=== PATIENT | female | born 1975 | race Caucasian/White ===

== ENCOUNTER 2023-11-27 10:42 | Outpatient (CLI) | payer BC, SELFPAY ==
[2023-11-27 07:46] LABS: Abs Immature Grans 0.02 10^3/uL (0.0-0.06); Absolute Basophil Count 0.03 10^3/uL (0.0-0.2); Absolute Eosinophil Count 0.05 10^3/uL (0.0-0.7); Absolute Lymphocyte Count 1.68 10^3/uL (1.2-3.4); Absolute Monocyte Count 0.65 10^3/uL (0.1-0.8); Basophils % 0.4; Eosinophils % 0.6; HCT 42.3 % (36.0-46.0); HGB 14.7 g/dL (11.2-15.7); Immature Grans % 0.2; Lymphocytes % 20.2; MCH 30.4 pg (27.0-33.0); MCHC 34.8 % (32.0-36.0); MCV 88 fL (80-95); MPV 10.9 fL (8.0-11.0); Monocytes % 7.8; Neutrophils % 70.8; Platelet Count 252 10^3/uL (130-400); RBC 4.83 10^6/uL (3.93-5.22); RDW 11.4 % (11.7-14.6); RDW-SD 36.4 fL; WBC 8.33 10^3/uL (4.4-10.8)
[2023-11-27 08:08] LABS: ALT 18 U/L (14-59); AST 11 U/L (15-37); Albumin 3.9 g/dL (3.4-5.0); Alkaline Phosphatase 40 U/L (46-116); Anion Gap 6.6 mmol/L (3-11); BUN 9 mg/dL (7-18); Bilirubin, Total 0.6 mg/dL (0.2-1.0); CO2 28.4 mmol/L (21.0-32.0); CREATININE 0.9 mg/dL (0.55-1.02); Calcium 8.9 mg/dL (8.5-10.1); Calculated LDL 100 mg/dL (<100); Chloride 104 mmol/L (98-107); Cholesterol 170 mg/dL (<200); Estimated GFR 79.85 (mL/min/1.73m2); Glucose 89 mg/dL (74-106); HDL Cholesterol 63 mg/dL (40-60); Potassium 3.9 mmol/L (3.5-5.1); Sodium 139 mmol/L (136-145); Triglyceride 38 mg/dL (<150)
== END 2023-11-27 10:43 | disposition home or self-care (01) ==
LOC: LBO 10:43
PROVIDERS: PCP Family Medicine; Visit Provider Family Medicine
DX: Z00.00 Encounter for general adult medical examination without abnormal findings (principal)
CPT/HCPCS: 36415; 80053; 80061; 85025

== ENCOUNTER → 2024-01-21 04:02 | Outpatient (CLI) | payer BC, SELFPAY ==
--- NOTE | 2024-01-21 | DI.MAMMO_ITS ---
Exam(s) MAMMO SCREENING EXAM: MAMMO SCREENING CLINICAL HISTORY: Z00.00 Annual physical exam TECHNIQUE: Mammograms were interpreted according to the usual protocol including computer analysis w [employer] CAD system, tomosynthesis and C-view imaging. COMPARISON: None. FINDINGS: The breasts are composed of heterogeneously dense fibroglandular densities, Breast Density category C . No suspicious masses or suspicious microcalcifications are seen. No skin thickening or abnormal axillary lymph nodes are seen. IMPRESSION: BI-RADS Category 1, Negative mammogram. Yearly screening mammography is recommended. Breast Density Category C, heterogeneously Dense. The mammogram demonstrates the patient's breast tissue is dense. Dense breast tissue is very common a nd is not abnormal but dense breast tissue can make it harder to find cancer on a mammogram. Also, de nse breast tissue may increase breast cancer risk. This information about the result of the mammogram report was provided to the patient to raise their awareness. Use this report when you speak with the patient about their risks for breast cancer, which includes their family history. At that time, you may recommend additional screening tests (Ultrasound or MRI) as they might be useful based on their r isk. A negative radiographic report should not delay biopsy if a dominant or clinically suspicious mass is present. Up to ten percent of cancers are not identified on mammography. A negative report may reinforce clinical impression. Adenosis and dense breasts may obscure an underlying neoplasm. False positive reports average 6 to 10%.
== END ==
PROVIDERS: PCP Family Medicine; Visit Provider Family Medicine
DX: Z00.00 Encounter for general adult medical examination without abnormal findings (principal); Z12.31 Encounter for screening mammogram for malignant neoplasm of breast; R92.323 Mammographic fibroglandular density, bilateral breasts
CPT/HCPCS: 77063; 77067

== ENCOUNTER 2024-09-20 15:42 | Outpatient (CLI) | payer BC, SELFPAY ==
[2024-09-20 15:11] LABS: Abs Immature Grans 0.03 10^3/uL (0.0-0.06); Absolute Basophil Count 0.03 10^3/uL (0.0-0.2); Absolute Eosinophil Count 0.04 10^3/uL (0.0-0.7); Absolute Lymphocyte Count 2.56 10^3/uL (1.2-3.4); Absolute Monocyte Count 0.58 10^3/uL (0.1-0.8); Absolute Neutrophil Count 5.74 10^3/uL (1.2-6.7); Basophils % 0.3 %; Eosinophils % 0.4 %; HCT 44.4 % (36.0-46.0); HGB 15.1 g/dL (11.2-15.7); Immature Grans % 0.3 %; Lymphocytes % 28.5 %; MCH 30.9 pg (27.0-33.0); MCV 91 fL (80-95); MPV 11.3 fL (8.0-11.0); Monocytes % 6.5 %; Platelet Count 255 10^3/uL (130-400); RBC 4.88 10^6/uL (3.93-5.22); RDW 11.4 % (11.7-14.6); RDW-SD 38.1 fL; WBC 8.98 10^3/uL (4.4-10.8)
[2024-09-20 18:20] LABS: ALT 17 U/L (14-59); AST 11 U/L (15-37); Albumin 4.4 g/dL (3.4-5.0); Alkaline Phosphatase 59 U/L (46-116); Anion Gap 7.7 mmol/L (3-11); BUN 15 mg/dL (7-18); Bilirubin, Total 0.25 mg/dL (0.2-1.0); CO2 30.3 mmol/L (21.0-32.0); Calcium 9.6 mg/dL (8.5-10.1); Chloride 106 mmol/L (98-107); Estimated GFR 70.36 (mL/min/1.73m2); Glucose 93 mg/dL (74-106); Potassium 4.4 mmol/L (3.5-5.1); Sodium 144 mmol/L (136-145); Total Protein 7.1 g/dL (6.4-8.2)
[2024-09-20 18:24] LABS: C-Reactive Protein < 0.50 mg/dL (<or=0.5)
== END 2024-09-20 15:43 | disposition home or self-care (01) ==
LOC: LBO 15:43
PROVIDERS: PCP Family Medicine; Visit Provider Internal Medicine Gastroenterology
DX: K51.00 Ulcerative (chronic) pancolitis without complications (principal)
CPT/HCPCS: 36415; 80053; 85025; 86140

== ENCOUNTER 2024-10-18 22:09 | Outpatient (CLI) | payer BC, SELFPAY ==
--- NOTE | 2024-10-18 | DI.RAD_ITS ---
Exam(s) XR CHEST 2V PA LATERAL EXAM: XR CHEST 2V PA LATERAL CLINICAL HISTORY: R05.09 Cough x 3 weeks TECHNIQUE: 2D digital imaging was performed of the chest. Two images were obtained. PA and lateral views were obtained. COMPARISON: No exams were available for comparison FINDINGS: MEDIASTINUM: Normal. HEART: Normal. PULMONARY VASCULATURE: Normal. LUNGS: Clear. PLEURAL SPACE: No pleural effusion or pneumothorax. BONE:Within normal limits for the patient's age. OTHER FINDINGS:Normal. IMPRESSION: No acute pulmonary findings. DATA REPOSITORY: RADIATION DOSE DELIVERED:
--- NOTE | 2024-10-18 17:34 | DI.VRAD_ITS ---
PROCEDURE INFORMATION: Exam: XR Chest Exam date and time: 10/18/2024 4:55 PM Age: 48 years old Clinical indication: Cough TECHNIQUE: Imaging protocol: Radiologic exam of the chest. Views: 2 views. COMPARISON: No relevant prior studies available. FINDINGS: Lungs: Unremarkable. No consolidation. Pleural spaces: Unremarkable. No pleural effusion. No pneumothorax. Heart/Mediastinum: Unremarkable. No cardiomegaly. Bones/joints: Unremarkable. IMPRESSION: No acute findings. Dictated and Authenticated by: Christiano Sierra MD. Ordering:VANNA STORM MD
== END 2024-10-18 22:29 ==
LOC: DI 22:10
PROVIDERS: PCP Family Medicine; Visit Provider Nurse Practitioner Family
DX: R05.9 Cough, unspecified (principal)
CPT/HCPCS: 71046

== ENCOUNTER 2024-10-25 20:40 | Emergency (ER) | payer BC, SELFPAY ==
[2024-10-25] VITALS (16 sets, daily range): BP systolic 119–156; BP diastolic 70–86; PULSE 79–98; RESP 13–24; O2SAT 95–99
--- NOTE | 2024-10-25 20:30 | RT.EKG_ITS ---
APPROVED REPORT Exam: Resting ECG Reason for Exam: chest pain Patient Location: E HR:89 bpm ECG Measurements Heart Rate 89 AXIS ID 132 P 58 QRSd 83 QRS 38 QT 378 T 52 QTc 460 Conclusion Sinus rhythm 89 normal axis no stemi
--- NOTE | 2024-10-25 21:15 | DI.RAD_ITS ---
Exam(s) XR CHEST 2V PA LATERAL EXAM: XR CHEST 2V PA LATERAL CLINICAL HISTORY: COUGH. TECHNIQUE: 2D digital imaging was performed. COMPARISON: CR,XR XR CHEST 2V PA LATERAL from 10/18/2024 FINDINGS: 2 views: Heart size is normal. The mediastinum is not widened. Lungs are clear. No infiltrates nor pleural effusions. IMPRESSION: No acute pulmonary findings. DATA REPOSITORY: RADIATION DOSE DELIVERED:
[2024-10-25 21:25] LABS: Abs Immature Grans 0.02 10^3/uL (0.0-0.06); Absolute Basophil Count 0.03 10^3/uL (0.0-0.2); Absolute Eosinophil Count 0.04 10^3/uL (0.0-0.7); Absolute Monocyte Count 0.81 10^3/uL (0.1-0.8); Absolute Neutrophil Count 5.59 10^3/uL (1.2-6.7); Basophils % 0.3 %; Eosinophils % 0.4 %; HCT 41.2 % (36.0-46.0); HGB 14.4 g/dL (11.2-15.7); Immature Grans % 0.2 %; Lymphocytes % 29.4 %; MCH 31.2 pg (27.0-33.0); MCV 89 fL (80-95); MPV 11.2 fL (8.0-11.0); Monocytes % 8.8 %; Neutrophils % 60.9 %; Platelet Count 238 10^3/uL (130-400); RBC 4.61 10^6/uL (3.93-5.22); RDW 11.7 % (11.7-14.6); RDW-SD 37.8 fL; WBC 9.19 10^3/uL (4.4-10.8)
--- NOTE | 2024-10-25 21:28 | ED.GENADUL_ITS ---
Discharge Plan Disposition Patient Disposition: Home Condition: Stable Discharge Details Clinical Impression: Heart palpitations, Hypokalemia Primary Care Provider: Hermila Cherry ED Provider: Lele Santana Home Meds and New Rx's Prescriptions: No Action mesalamine 1.2 gram tablet,delayed release (DR/EC) 1.2 g PO BID albuterol sulfate 90 mcg/actuation HFA aerosol inhaler 2 puff INHALATION Q4H PRN Patient Comments: INHALE TWO PUFFS BY MOUTH EVERY 4 HOURS NEEDED FOR SHORTNESS OF BREATH /COUGH /WHEEZING Discharge Instructions Instructions: High Potassium Diet, Palpitations (DC) Additional Instructions: your potassium level was slightly low, follow dietary instructions to increase potassium intake your chest xray does not demonstrate any signs of recurrent pneumonia the remainder of your blood work looks good please follow up with your PCP for re-evaluation of ongoing palpitations as you may need a holter monitor, they can order this for you. HPI General Date/Time Provider Initiated Documentation: 10/25/24 20:50 . Limitations to Documentation: no limitations . Information obtained by: patient and family . HPI Narrative: 48-year-old female with past medical history of ulcerative colitis presents for evaluation of palpitations and chest pain. She reports that she was at home at rest when symptoms started. Asthma and reports that they were having some significant stressful event. She reports that she had some generalized pressure that covered her entire chest wall. It was not associated with shortness of breath, sweating, nausea or vomiting. She reports that she was recently treated for pneumonia with antibiotics and also an albuterol inhaler. She states that she does have a history of PVCs and is noted that she has had increased PVCs lately. She reports that this pressure in her chest has improved she is not really feeling that anymore but still having some palpitations. Her states that her heart seemed to be irregular and beating fast. He stated that he measured it around 94. Related Data Home Medications ?Medication ?Instructions ?Recorded ?Confirmed albuterol sulfate 90 mcg/actuation 2 puff inhalation Q4H PRN 10/25/24 10/25/24 aerosol inhaler mesalamine 1.2 gram tablet,delayed 1.2 g PO BID 10/25/24 10/25/24 release Allergies Allergy/AdvReac Type Severity Reaction Status Date / Time ethinyl estradiol (From Allergy Severe Swelling/Ed Verified 10/25/24 20:47 [place] (28)) mable levonorgestrel (From [place] Allergy Severe Swelling/Ed Verified 10/25/24 20:47 (28)) mable adhesive tape AdvReac Unknown Swelling/Ed Verified 10/25/24 20:47 mable General Stated Complaint: Arrhythmia DELBERT: 3 Exam Narrative Exam Narrative: Review of Systems: All systems reviewed & are unremarkable except as noted in HPI and below Well-developed, no acute distress NCAT PERRL, normal conjunctiva RRR n no murmur Unlabored respiratory effort clear bilaterally Nondistended abdomen soft nontender Extremities w/o edema no focal neurologic deficits Course Vital Signs Vital signs: Vital Signs Pulse 95 H 10/25/24 20:49 Respiratory Rate 21 10/25/24 20:49 Blood Pressure 156/86 H 10/25/24 20:49 Pulse Oximetry 98 10/25/24 20:49 Pulse 95 H 10/25/24 20:49 Respiratory Rate 21 10/25/24 20:49 Blood Pressure 156/86 H 10/25/24 20:49 Blood Pressure Position Sitting 10/25/24 20:49 Pulse Oximetry 98 10/25/24 20:49 Oxygen Delivery Method Room Air 10/25/24 20:49 Oxygen Flow Rate 0 10/25/24 20:49 Pain Level 0 10/25/24 20:49 Lab/Test Results Lab/Test Results: Laboratory Tests Range/Units 10/25/24 20:50 WBC (4.4-10.8) 10^3/uL 9.19 RBC (3.93-5.22) 10^6/uL 4.61 Hgb (11.2-15.7) g/dL 14.4 Hct (36.0-46.0) % 41.2 MCV (80-95) fL 89 MCH (27.0-33.0) pg 31.2 MCHC (32.0-36.0) % 35.0 RDW (11.7-14.6) % 11.7 Plt Count (130-400) 10^3/uL 238 MPV (8.0-11.0) fL 11.2 H Immature Gran % % 0.2 Neutrophils % % 60.9 Lymphocytes % % 29.4 Monocytes % % 8.8 Eosinophils % % 0.4 Basophils % % 0.3 Nucleated RBC % (0.0-0.3) % 0.0 Absolute Neutrophils (1.2-6.7) 10^3/uL 5.59 Absolute Lymphocytes (1.2-3.4) 10^3/uL 2.70 Absolute Monocytes (0.1-0.8) 10^3/uL 0.81 H Absolute Eosinophils (0.0-0.7) 10^3/uL 0.04 Absolute Basophils (0.0-0.2) 10^3/uL 0.03 Medical Decision Making Urgent evaluation of chest pain and palpitations. Occurred at rest, nonexertional, no associated symptoms or radiation. EKG reviewed and independently interpreted: Sinus 89 normal axis no acute ischemic changes. The patient has normal vital signs at this time. Initial differential includes electrolyte derangement, pulmonary illness, less likely ACS. Plan for lab work cardiac monitoring. Will be repeat chest x-ray given recent pneumonia and residual symptoms. Lab work reviewed no leukocytosis or anemia. Mild hypokalemia at 3.4. Otherwise blood work is unremarkable. Serial troponins are not elevated. TSH is within normal limits. Chest x-ray reviewed and independently interpreted, there is no focal consolidation or other concern for persistence or recurrence of pneumonia. Her potassium was repleted orally. I recommend some dietary changes and that she follow-up closely with her PCP regarding any ongoing palpitations and she may benefit from Holter monitor. Quality:[facility] Health Related Social Needs: No Data to Display PFSH All Active Problems (Updated 10/25/24 @ 22:05 by Lele Santana MD) Hypokalemia (Acute) Heart palpitations (Acute) Social History Smoking/Tobacco Use Status: Never Smoking risk assessment performed?: Yes Alcohol Intake: never Drug use: Never Substance use type: does not use
[2024-10-25 21:47] LABS: ALT 17 U/L (14-59); AST 10 U/L (15-37); Albumin 3.7 g/dL (3.4-5.0); Alkaline Phosphatase 61 U/L (46-116); Anion Gap 9.6 mmol/L (3-11); BUN 11 mg/dL (7-18); Bilirubin, Total 0.28 mg/dL (0.2-1.0); CO2 27.4 mmol/L (21.0-32.0); CREATININE 0.9 mg/dL (0.55-1.02); Calcium 8.7 mg/dL (8.5-10.1); Chloride 106 mmol/L (98-107); Creatine Kinase 42 U/L (26-192); Estimated GFR 79.85 (mL/min/1.73m2); Glucose 118 mg/dL (74-106); Magnesium 2.1 mg/dL (1.8-2.4); NT-proBNP 72 pg/mL (<300); Potassium 3.4 mmol/L (3.5-5.1); Sodium 143 mmol/L (136-145); TSH (W/Ref FT4) 2.19 uIU/mL (0.36-3.74); Total Protein 6.8 g/dL (6.4-8.2); Troponin I 9 ng/L (<or=51)
[2024-10-25] MEDS: Potassium Chloride Liquid 20 MEQ PKT 40 MEQ PO (22:02)
[2024-10-25 22:17] LABS: Troponin I 11 ng/L (<or=51)
--- NOTE | 2024-10-25 23:08 | DI.VRAD_ITS ---
PROCEDURE INFORMATION: Exam: XR Chest Exam date and time: 10/25/2024 9:32 PM Age: 48 years old Clinical indication: Cough TECHNIQUE: Imaging protocol: Radiologic exam of the chest. Views: 2 views. COMPARISON: CR XR CHEST 2V PA LATERAL 10/18/2024 4:55 PM FINDINGS: Lungs: Unremarkable. No consolidation. Pleural spaces: Unremarkable. No pleural effusion. No pneumothorax. Heart/Mediastinum: Unremarkable. No cardiomegaly. Bones/joints: Unremarkable. IMPRESSION: No acute findings. Dictated and Authenticated by: Argentina Gong MD. Ordering:[facility] Max Packer MD
== END 2024-10-25 22:25 | disposition home or self-care (01) ==
PROVIDERS: Emergency Provider Emergency Medicine; PCP Family Medicine
DX: R00.2 Palpitations (principal); E87.6 Hypokalemia; I10 Essential (primary) hypertension; Z87.01 Personal history of pneumonia (recurrent); Z86.79 Personal history of other diseases of the circulatory system
CPT/HCPCS: 36415; 80053; 82550; 93005; 99284; 71046; 83735; 83880; 84443; 84484; 85025; 93010

== ENCOUNTER 2024-11-09 16:48 | Outpatient (CLI) | payer BC, SELFPAY ==
[2024-11-09 16:50] LABS: Anion Gap 6.7 mmol/L (3-11); CO2 31.3 mmol/L (21.0-32.0); Chloride 103 mmol/L (98-107); Potassium 3.9 mmol/L (3.5-5.1); Sodium 141 mmol/L (136-145); TSH (W/Ref FT4) 1.95 uIU/mL (0.36-3.74)
== END 2024-11-09 16:49 | disposition home or self-care (01) ==
LOC: LBO 16:48
PROVIDERS: PCP Family Medicine; Visit Provider Family Medicine
DX: R00.2 Palpitations (principal)
CPT/HCPCS: 36415; 80051; 84443

== ENCOUNTER 2024-12-21 02:33 | Outpatient (CLI) | payer BC, SELFPAY ==
[2024-12-21 08:31] LABS: Abs Immature Grans 0.01 10^3/uL (0.0-0.06); Absolute Basophil Count 0.02 10^3/uL (0.0-0.2); Absolute Eosinophil Count 0.06 10^3/uL (0.0-0.7); Absolute Lymphocyte Count 1.77 10^3/uL (1.2-3.4); Absolute Monocyte Count 0.39 10^3/uL (0.1-0.8); Absolute Neutrophil Count 2.77 10^3/uL (1.2-6.7); Basophils % 0.4 %; Eosinophils % 1.2 %; HCT 44.9 % (36.0-46.0); HGB 15.2 g/dL (11.2-15.7); Immature Grans % 0.2 %; Lymphocytes % 35.3 %; MCH 30.8 pg (27.0-33.0); MCHC 33.9 % (32.0-36.0); MCV 91 fL (80-95); MPV 11.2 fL (8.0-11.0); Monocytes % 7.8 %; Neutrophils % 55.1 %; Platelet Count 233 10^3/uL (130-400); RBC 4.94 10^6/uL (3.93-5.22); RDW 11.6 % (11.7-14.6); RDW-SD 38.7 fL; WBC 5.02 10^3/uL (4.4-10.8)
[2024-12-21 09:17] LABS: ALT 14 U/L (14-59); AST 11 U/L (15-37); Albumin 3.9 g/dL (3.4-5.0); Alkaline Phosphatase 46 U/L (46-116); Anion Gap 5.9 mmol/L (3-11); BUN 11 mg/dL (7-18); Bilirubin, Total 0.54 mg/dL (0.2-1.0); CO2 30.1 mmol/L (21.0-32.0); CREATININE 0.9 mg/dL (0.55-1.02); Calcium 9.2 mg/dL (8.5-10.1); Calculated LDL 108 mg/dL (<100); Chloride 108 mmol/L (98-107); Cholesterol 187 mg/dL (<200); Estimated GFR 79.35 (mL/min/1.73m2); Glucose 96 mg/dL (74-106); HDL Cholesterol 67 mg/dL (40-60); Potassium 4.3 mmol/L (3.5-5.1); Sodium 144 mmol/L (136-145); Total Protein 6.9 g/dL (6.4-8.2); Triglyceride 61 mg/dL (<150)
== END 2024-12-21 02:34 | disposition home or self-care (01) ==
PROVIDERS: PCP Family Medicine; Visit Provider Family Medicine
DX: Z00.00 Encounter for general adult medical examination without abnormal findings (principal); Z13.220 Encounter for screening for lipoid disorders
CPT/HCPCS: 36415; 80053; 80061; 85025